=== PATIENT | male | born 1945 | race Two or more races ===

== ENCOUNTER 2023-04-18 07:43 | Outpatient (CLI) | payer OTHER | END 2023-04-18 07:52 | disposition home or self-care (01) | LOC: TOM 07:43 | PROVIDERS: ATTEND Internal Medicine Gastroenterology | DX: R19.4 Change in bowel habit (principal); R10.33 Periumbilical pain; K57.30 Diverticulosis of large intestine without perforation or abscess without bleeding; Z86.010 Personal history of colon polyps ==